=== PATIENT | female | born 1990 | race Caucasian/White ===

== ENCOUNTER 2020-06-29 07:47 | Inpatient (IN) | payer OTHER ==
[2020-06-29] MEDS ORDERED: Lactated Ringers 500 ML IV SCH ×2 (08:00)
[2020-06-29] MEDS ORDERED: Lactated Ringers 1,000 ML IV ONE (08:00)
[2020-06-29] MEDS ORDERED: Tranexamic Acid 1,000 MG in Sodium Chloride 0.9% 100 ML IV PRN (08:00)
[2020-06-29] MEDS ORDERED: Acetaminophen 325 MG Tab PO PRN (08:00)
[2020-06-29] MEDS ORDERED: Naloxone 2 MG/2 ML Syringe IVPUSH PRN (08:00)
[2020-06-29] MEDS ORDERED: Lidocaine 1% 30 ML SDV INJECT PRN (08:00)
[2020-06-29] MEDS ORDERED: Oxytocin/Normal Saline 30 UNIT/500 ML BAG IV SCH ×2 (08:00)
[2020-06-29] MEDS ORDERED: Sodium Chloride 0.9% 1,000 ML IV SCH (08:00)
[2020-06-29] MEDS ORDERED: Promethazine 25 MG/ML SDV IM PRN (08:00)
[2020-06-29] MEDS ORDERED: ePHEDrine 50 MG/ML SDV IVPUSH PRN (08:00)
[2020-06-29] MEDS ORDERED: Carboprost Tromethamine 250 MCG/1 ML Amp IM PRN (08:00)
[2020-06-29] MEDS ORDERED: Methylergonovine 0.2 MG/1 ML Amp IM PRN (08:00)
[2020-06-29] MEDS ORDERED: Sodium Chloride 0.9% 10 ML Syringe FLUSH PRN (08:00)
[2020-06-29] MEDS ORDERED: Misoprostol 400 MCG (4 X 100 MCG TAB) RECTAL PRN (08:00)
[2020-06-29] MEDS ORDERED: Ondansetron 4 MG/2 ML SDV IVPUSH PRN ×2 (08:00)
[2020-06-29] MEDS ORDERED: Misoprostol 50 MCG (1/2 of 100 MCG) Tab VAG ONE (08:24)
[2020-06-29] MEDS: Acetaminophen 325 MG Tab PO PRN ×2 (09:51→16:56)
[2020-06-29] MEDS: Misoprostol 25 MCG (1/4 of 100 MCG) Tab VAG PRN ×2 (16:54→21:06)
[2020-06-29] MEDS ORDERED: hydrOXYzine HCl 25 MG Tab PO PRN (20:47)
[2020-06-30] MEDS: Acetaminophen 325 MG Tab PO PRN ×2 (00:27→19:38)
[2020-06-30] MEDS ORDERED: Nalbuphine 10 MG/1 ML Vial IM ONE (03:14)
[2020-06-30] MEDS: Lactated Ringers 1,000 ML IV SCH ×4 (05:55→15:49)
[2020-06-30] MEDS ORDERED: EPINEPHrine 1 MG/1 ML Amp ONE (09:23)
--- NOTE | 2020-06-30 10:37 | PCM.PRNOTE ---
- Free Text/Narrative Note: Requested to provide analgesia to full term patient in severe pain. Upon entering the room, patient is sitting on edge of bed complaining of severe abdominal/pelvic pain and discomfort. Procedure was discussed with patient including adverse outcomes and expectations. Pt consented to analgesia, SAB/IT. Pt placed into a proper sitting position. Landmarks for SAB/IT were identified and marked. Hands were washed and appropriate PPE was applied. Back was prepped with betadine x3. A sterile, transparent, fenestrated drape was applied. Excess betadine was removed. Using 3 mL of a 1% lidocaine solution, a skin wheel was placed at the L2/L3 interspace. A 24 ga (4 inch) Pencan spinal needle was inserted until positive for CSF. Negative for heme or paresthesias. Injected fentanyl 30 mcg, sufentanil 25 mcg, and 7.5 mg of a 0.75% bupivacaine solution with an epi wash. Pt was placed left lateral tilt position for approximately 20 minutes. There were zero complications or adverse outcomes. Will continue to monitor. Procedure Date & Time: 06/30/20 [id number]
[2020-06-30] MEDS ORDERED: fentaNYL 100 MCG/2 ML SDV IVPUSH ONE (15:30)
[2020-06-30] MEDS ORDERED: fentaNYL 100 MCG/2 ML SDV ONE (15:30)
[2020-06-30] MEDS: fentaNYL 100 MCG/2 ML SDV ONE ×2 (15:55→15:57)
[2020-06-30] MEDS ORDERED: Benzocaine/Menthol 20%-0.5% Spray 56 GM Canister TOP PRN (16:15)
[2020-06-30] MEDS ORDERED: Simethicone 80 MG Tab.Chew PO PRN (16:15)
[2020-06-30] MEDS: Ibuprofen 800 MG Tab PO PRN (16:55)
--- NOTE | 2020-06-30 19:07 | DEL ---
DATE: 06/30/2020 PREPROCEDURE DIAGNOSES: 1. 1, para 0. 2. 41-17th weeks' intrauterine . 3. Blood type O positive, rubella immune, and group B Streptococcus negative. 4. Suspicion for asynclitic presentation. POSTPROCEDURE DIAGNOSES: 1. 1, para 1. 2. 41-17th weeks' intrauterine . 3. Blood type O positive, rubella immune, and group B Streptococcus negative. 4. Suspicion for asynclitic presentation. 5. Status post vacuum-assisted vaginal delivery for maternal benefit and suspected asynclitic. 6. Third-degree laceration repair. BRIEF HISTORY: A 29-year-old female with the above-listed diagnoses, presented to the hospital yesterday for induction of labor which was carried out with 3 doses of Cytotec. After the third dose, the patient was approximately 2+ cm dilated and thinned out nicely and had spontaneous rupture of membranes. Regular contractions initially started, and then she was given a dose of Nubain for pain and the contractions spaced. Pitocin was initiated, and from there she went on to 7 cm and had an intrathecal placed for pain control, was able to make it to complete and then labored down for a period of time before she started pushing. We did have her pushing in a variety of different positions, and the baby was making fairly good progress. I came over and checked on her and diagnosed that baby seemed to be mildly asynclitic, but with some maternal position changes suspected that the baby would be able to rotate and still deliver vaginally, so she was allowed to continue to do that for about another hour, and then I returned and baby was down at a +3 station, and she had made some good progress during that time. Continued pushing efforts, however, did not result in any further descent nor delivery. She was having significant pain, having much less ability to control her pain. The baby seemed to be tolerating the pushing well. She had been pushing for an extended period of time and was also growing more fatigued, and pushing efforts were not as strong as they were before. So I discussed with her and her , increased risk of shoulder dystocia, scalp lacerations, even bleeding for the baby, potential for vaginal lacerations requiring more extensive repair, increased risk of shoulder dystocia, however, delivery would be likely expedited by vacuum assistance and recovery from vacuum-assisted delivery is still generally easier on the mother than recovery from a section. DESCRIPTION OF PROCEDURE: The operating room crew and healthcare administrative assistant were all notified and available on standby should we need to convert to that method. The bladder was emptied with straight catheter and return of only about 50 mL of clear urine. Pain control was augmented with Nitrox because the intrathecal was starting to wear off. However, additional IV pain medications were not appropriate given the soon expected delivery. Kiwi vacuum was initially placed and verified. It was held in the green position with appropriate pull for 2 contractions, and there was 1 pop-off and 1 loss of suction, so we changed to the low-profile vacuum, which was used for an additional 2 contractions resulting in delivery of a viable male over intact perineum, confirmed to be asynclitic with caput forming to the posterior right parietal area. Total vacuum time less than 10 minutes. Baby delivered in ERMELINDA position with nuchal cord times 1 reduced by summersault maneuver. Vacuum removed and kelsey note on the posterior right side. The baby was dried and mouth suctioned, and then the baby placed up on mother's abdomen. After a delay, 3-vessel umbilical cord was doubly clamped and cut by the baby's father. Cord blood sample was then obtained. Placenta delivered by gentle cord traction and concomitant uterine massage. The labia and vagina were inspected. Third-degree laceration was present. The patient was still having significant pain and essentially holding her legs together, so she was given a dose of 50 mcg of fentanyl, and the area anesthetized with 1% lidocaine without epinephrine. A standard third-degree laceration repair was performed with 3-0 Vicryl with excellent reapproximation of the tissues and bleeding was well controlled. Appropriate cosmetic result as well. COMPLICATIONS: None. ESTIMATED BLOOD LOSS: 300 mL. DISPOSITION: Mother and baby to stay in the room at this time. FINDINGS: Viable male . scores of 9 and 9. Weight is 3495g. [facility] [place] /[id number] [facility] CENTERAdonay
[2020-06-30] MEDS: Docusate Sodium 100 MG Cap PO PRN (19:38)
[2020-07-01] MEDS: Ibuprofen 800 MG Tab PO PRN ×3 (01:37→17:28)
[2020-07-01] MEDS: Acetaminophen 325 MG Tab PO PRN ×5 (04:15→21:11)
[2020-07-01] MEDS: Ferrous Sulfate 325 MG Tab PO SCH (08:44)
[2020-07-01] MEDS: Docusate Sodium 100 MG Cap PO PRN (08:44)
[2020-07-01] MEDS: Prenatal Multivitamin with Calcium/Folic Acid/Iron Tab PO SCH (08:44)
[2020-07-01] MEDS ORDERED: EPINEPHrine 1 MG/1 ML Amp ONE (17:12)
[2020-07-01] MEDS ORDERED: fentaNYL 100 MCG/2 ML SDV ITHECAL ONE (17:12)
[2020-07-01] MEDS ORDERED: Lidocaine 5% 700 MG Patch TOP SCH (22:00)
[2020-07-02] MEDS: Acetaminophen 325 MG Tab PO PRN ×3 (01:36→09:33)
[2020-07-02] MEDS: Docusate Sodium 100 MG Cap PO PRN ×2 (01:36→09:32)
[2020-07-02] MEDS: Ibuprofen 800 MG Tab PO PRN ×2 (01:37→09:33)
--- NOTE | 2020-07-02 07:31 | PN ---
DATE: 07/01/2020 SUBJECTIVE: Post vacuum-assisted vaginal delivery day #1. A 29-year-old 1, now para 1-0-0-1, reports that she has overall been doing well, ambulating and tolerating a regular diet. No chest pain or shortness of breath. Bleeding has been as expected and she is voiding without difficulties. Perineal region pain is well controlled. is coming along with some additional assistance and baby seems to prefer 1 side over the other. Otherwise, questioning when she will be likely to start having her migraine headaches again or if there is something that we can do to mimic hormones to treat her migraines since she seemed to be fairly migraine free throughout the itself. They are looking forward to going home today. Later on in the evening, I was informed that patient was having some back pain near the site of the epidural injection. No specific muscle tenderness. She would like to avoid any medications that could potentially get into the breast milk, so was preferring to stay with ibuprofen and Tylenol at this time, requesting a heating pad and any further recommendations that I may have. OBJECTIVE: Vital Signs: Temperature 98.3, pulse 85, blood pressure 124/76, respiratory rate of 12, and O2 saturations 99% on room air. Heart: Regular without murmur. Lungs: Clear to auscultation bilaterally. Abdomen: Soft, nontender. Fundus is firm and below the umbilicus. Extremities: No edema, erythema or tenderness noted. Epidural injection site had appeared normal. ASSESSMENT: 1. Postvaginal delivery day #1. 2. 1, para 1, delivered at 41 and 1/7 weeks. 3. Status post vacuum delivery with third-degree laceration repair. 4. Back pain near the intrathecal injection site. 5. History of migraine headaches. PLAN: Anticipate routine post-vaginal delivery care with discharge home tomorrow as long as all continues to go well. Discussed using the K-pad and possibly even a Lidoderm patch and that we can get a Physical Therapy consult in the morning to further assess if there is anything else we can do for her back pain. Otherwise, we will try to seek medications that would be safe for use with breast feeding. [facility] /[id number] [facility]
[2020-07-02] MEDS: Prenatal Multivitamin with Calcium/Folic Acid/Iron Tab PO SCH (09:32)
[2020-07-02] MEDS: Ferrous Sulfate 325 MG Tab PO SCH (09:32)
--- NOTE | 2020-07-07 08:30 | DISCH ---
ADMISSION DIAGNOSES: 1. 41 and 0/7 weeks' intrauterine . 2. 1 para 0. 3. Blood type O positive, rubella immune, group B streptococcus negative. 4. Coronavirus disease test negative. DISCHARGE DIAGNOSES: 1. 41 and 0/7 weeks' intrauterine . 2. 1 para 1-0-0-1. 3. Blood type O positive, rubella immune, group B streptococcus negative. 4. Coronavirus disease test negative. 5. Status post vacuum-assisted vaginal delivery with 3rd-degree laceration repair. 6. Asynclitic presentation. 7. Muscular back pain. BRIEF HISTORY: The patient is a 29-year-old female with the above-listed diagnosis, brought into the hospital for induction of labor due to postdates . She received 3 doses of Cytotec and had spontaneous rupture of membranes and was switched over to Pitocin, received an intrathecal for pain management, and after 8 hours of active labor was complete, pushed for approximately 1.5 hours, and baby was in asynclitic presentation and we were having lack of progress, therefore vacuum-assisted vaginal delivery was performed without complications. She did have a 3rd-degree laceration which was repaired without incident and good hemostasis. There was noted to be a nuchal cord at time of delivery and baby was verified to be asynclitic with right posterior parietal area presenting. HOSPITAL COURSE: Good. The patient has been doing well, ambulating, tolerating regular diet, voiding without difficulties. No chest pain or shortness of breath. is going well. She is having lochia of menstrual flow volume and denies any other concerns and is meeting discharge criteria. DISCHARGE CONDITION: Good. PHYSICAL EXAMINATION: Vital Signs: Temperature is 98.7, pulse 84, blood pressure 137/85, respiratory rate of 14, O2 saturations 99% on room air. Heart: Regular without obvious murmur. Lungs: Clear to auscultation bilaterally. Abdomen: Soft, nontender. Positive bowel sounds. Fundus is firm and below the umbilicus. Extremities: No edema, erythema, or tenderness noted. LABORATORY DATA: Admission hemoglobin of 13.1, discharge of 11.2. Admission platelets 238, discharge 204. COVID testing was negative. DISPOSITION: Home with family. MEDICATIONS: vitamin 1 daily, iron 325 mg once daily, Colace 100 mg twice daily as needed for constipation, ibuprofen 800 mg every 8 hours as needed for pain, Tylenol 625 mg 3 times daily as needed for pain. She can use over-the- counter lidocaine patches for her back pain. INSTRUCTIONS: Routine post-vaginal delivery care instructions were provided. She will also continue with heat, ibuprofen, Tylenol, and appropriate stretches for her muscular back pain and spasm. FOLLOWUP: She will be seen in the office in 6 weeks for routine exam and we will also check on her when she brings the baby in for the 2-day and 2- week well-child exams. All of her questions and her 's questions have been answered. [facility] /[id number] [place]
== END 2020-07-02 12:15 | disposition home or self-care (01) | DRG 768 ==
LOC: DL.OBCHECK 07:47 → DL.OB 07:48 → UNDOADMOB 07:48 → DL.OB 07:49 → INTOOBSV 15:18 → OBSVTOIN 15:18 → DL.OB 15:18
PROVIDERS: ADMIT Family Medicine; ATTEND Family Medicine
PROC: 10D07Z6 Extraction of Products of Conception, Vacuum, Via Natural or Artificial Opening (ICD-10-PCS; principal; 2020-06-29)
PROC: 0DQR0ZZ Repair Anal Sphincter, Open Approach (ICD-10-PCS; 2020-06-29)
PROC: 3E0P7VZ Introduction of Hormone into Female Reproductive, Via Natural or Artificial Opening (ICD-10-PCS; 2020-06-29)
PROC: 3E0R3BZ Introduction of Anesthetic Agent into Spinal Canal, Percutaneous Approach (ICD-10-PCS; 2020-06-29)
PROC: 00HU33Z Insertion of Infusion Device into Spinal Canal, Percutaneous Approach (ICD-10-PCS; 2020-06-29)
DX: O48.0 Post-term pregnancy (principal); Z37.0 Single live birth; O70.20 Third degree perineal laceration during delivery, unspecified; Z3A.41 41 weeks gestation of pregnancy
CPT/HCPCS: 01967; 36415; 59409; 85027; A9270-GY; J0171; J2001; J2300; J2405; J2590; J3010; J7120; U0002